=== PATIENT | male | born 1965 | race American Indian/Alaskan Native ===

== ENCOUNTER 2020-04-07 17:34 | Emergency (ER) | payer SELFPAY ==
[2020-04-07 17:51] VITALS: BP 175/103
--- NOTE | 2020-04-07 18:24 | Emergency Department Report ---
Chief Complaint: Earache Stated Complaint: HEARING Time Seen by Provider: 04/07/20 18:21 - HPI History of Present Illness: Patient is a 54-year-old male who presents emergency room with complaints of bilateral ear pain that began yesterday. Patient states that he attempted to clean his ears with a Q-tip yesterday. He states that his hearing feels muffled in both ears. He states that he did scratch his left ear canal with a Q-tip and caused bleeding. He states that his hearing still feels muffled. He denies any ear drainage, fever, vomiting, diarrhea, chills, facial swelling, difficulty swallowing. He has a past medical history of COPD, HTN, and DVT. No allergies to medications. Vitals are stable On exam: Non toxic appearing, no acute distress atraumatic, normocephalic normal appearance of the eyes, EOMI, no periorbital edema or ecchymosis moist mucus membranes, cerumen impactions present to the bilateral ears, there is a small amount of dried blood present in the left ear canal, unable to visualize TM secondary to cerumen impactions, no purulent drainage in the ear canals No respiratory distress or accessory muscle use A&O x4, no focal neuro deficit skin is warm, dry, intact Examination appears consistent with bilateral cerumen impactions, no signs of otitis externa at this time, does appear to have a small abrasion present to the left ear canal secondary to him using Q-tips, no signs of foreign body Patient reports he has had to see an ENT doctor for this in the past Advised patient May use liquid Colace in the ears and let it sit for 10 minutes, after 10 minutes may use Debrox ear cleaning solution kit. Please do not use Q-tips or instruments inside the ear. Please follow-up with the ENT doctor. Return to emergency room for any new or worsening symptoms. Patient will be referred to ENT, discussed the importance of follow-up Discussed strict return precautions medical screening examination performed there is no threat to life or limb at this time - Exam Vital Signs: Vital Signs 04/07/20 17:50 Temperature 97.8 F Pulse Rate 76 Respiratory 20 Rate Blood Pressure 175/103 [Right] O2 Sat by Pulse 98 Oximetry MSE screening note: Focused history and physical exam performed. ED Disposition for MSE Clinical Impression: Impacted cerumen of both ears Disposition: MED SCREENING EXAM-LEFT Is pt being admited?: No Does the pt Need Aspirin: No Condition: Stable Instructions: Earwax Buildup, Adult Additional Instructions: May use liquid Colace in the ears and let it sit for 10 minutes, after 10 minutes may use Debrox ear cleaning solution kit. Please do not use Q-tips or instruments inside the ear. Please follow-up with the ENT doctor. Return to emergency room for any new or worsening symptoms. Referrals: KITTY BATES MD [Staff Physician] - 2-3 Days ENT [facility] [Provider Group] - 2-3 Days ENT [facility] [Provider Group] - 2-3 Days Time of Disposition: 18:23 Print Language: BENGAL[place]
== END 2020-04-07 20:32 | disposition left against medical advice (07) ==
LOC: ED 17:34
DX: H91.90 Unspecified hearing loss, unspecified ear (principal); Z53.21 Procedure and treatment not carried out due to patient leaving prior to being seen by health care provider